=== PATIENT | female | born 1985 | race African-American/Black ===

== ENCOUNTER 2016-12-07 12:17 | Emergency (ER) | payer MEDICAID ==
[~2016-12-07] VITALS: Ht 162.6 cm; Wt 86.0 kg
[~2016-12-07 12:17] MED LIST: CIPR500T4 PO; LORTA5 PO; ZOFR4TAB3 SL
[2016-12-07 12:21] VITALS: BP 133/76; PULSE 98; RESP 16; TEMP 99.4; O2SAT 97
[2016-12-07] MEDS ORDERED: predniSONE 20 MG TAB PO ONE (13:30)
[2016-12-07] MEDS ORDERED: RESP: ALBUTEROL 2.5 MG/3 ML NEB (SCH) INH ONE (13:30)
[2016-12-07] MEDS ORDERED: IBUPROFEN 800 MG TAB PO ONE (13:30)
--- NOTE | 2016-12-07 13:36 | PD ---
HPI Chief Complaint: Cold / Flu Symptoms Time Seen by Provider: 13:31 Travel History International Travel<30 days: No Contact w/Intl Traveler<30days: No Traveled to known affect area: No History of Present Illness HPI 31-year-old female presents to the emergency Department with complaint of nasal congestion, cough, throat irritation times one week. Onset of fever yesterday with MAXIMUM TEMPERATURE 100.7 last night. Reports body aches. Reports decreased appetite. Denies nausea, vomiting. Denies chest pain, shortness of breath, abdominal pain. Reports throat irritation with coughing. Denies ear pain. Has not taken any medications or tried any treatments to alleviate her symptoms. No 1 else with similar symptoms. Did not get the flu vaccine. No known aggravating or relieving factors. Tobacco use daily. Denies history of asthma. No known allergies. No other modifying factors or associated signs and symptoms. PFSH Past Medical History Diminished Hearing: No ?: Not : 3 Para: 3 Tubal Ligation: Yes Past Surgical History Section: Yes (x 3) Oral Surgery: Yes (REMOVED ALL TEETH, PT WEARS DENTURES) Other Surgery: Yes (DENTAL) Social History Alcohol Use: Yes (OCCASIONALLY ) Tobacco Use: Yes (1/3 pack a day ) Substance Use: No Allergies-Medications (Allergen,Severity, Reaction): Coded Allergies: No Known Allergies (Verified , 12/07/16) Reported Meds & Prescriptions Reported Meds & Active Scripts Active Ibuprofen 800 Mg Tab 800 Mg PO Q6HR PRN Tessalon Perles (Benzonatate) 100 Mg Cap 100 Mg PO TID PRN Deltasone (Prednisone) 20 Mg Tab 40 Mg PO DAILY 4 Days start 12/08/2016 Proair Hfa 8.5 GM Inh (Albuterol Sulfate) 90 Mcg/Act Aer 2 Puff INH Q4-6H PRN 108 mcg/actuation Review of Systems Except as stated in HPI: all other systems reviewed are Neg Physical Exam Narrative GENERAL: Well-nourished, well-developed female patient, in no acute distress; low-grade fever 99.4; nontoxic-appearing SKIN: Warm and dry. HEAD: Atraumatic. Normocephalic. EYES: Pupils equal and round. No scleral icterus. No injection or drainage. ENT: Mucosa pink and moist. No erythema or exudates. No uvular edema. No uvular , palatal, or tonsillar deviation. Airway patent. Nares without nasal blood, purulent drainage or septal hematoma. EARS: Bilateral pinnae and external canals appear within normal limits. Bilateral tympanic membranes without erythema, dullness or perforation. NECK: Trachea midline. No lymphadenopathy. CARDIOVASCULAR: Regular rate and rhythm. No murmur appreciated. RESPIRATORY: No accessory muscle use. Lungs with decreased lung sounds to bilateral bases to auscultation. Breath sounds equal bilaterally. No retractions or tachypnea. No Audible wheezing noted. Moist cough noted. GASTROINTESTINAL: Abdomen soft, non-tender, nondistended. Hepatic and splenic margins not palpable. Bowel sounds are active 4 quadrants. MUSCULOSKELETAL: No obvious deformities. No clubbing. No cyanosis. No edema. NEUROLOGICAL: Awake and alert. Oriented 3. No obvious cranial nerve deficits. Motor grossly within normal limits. Normal speech. Moves all extremities. 5/5 strength to all extremities. PSYCHIATRIC: Appropriate mood and affect; insight and judgment normal. Data Data Last Documented VS Vital Signs Date Time Temp Pulse Resp B/P Pulse Ox O2 Delivery O2 Flow Rate FiO2 12/07/16 14:06 93 21 12/07/16 12:21 99.4 98 16 133/76 Orders Chest, Single Ap (12/07/16 13:23) Prednisone (Deltasone) (12/07/16 13:30) Albuterol Neb (Albuterol Neb) (12/07/16 13:30) Influenzae A/B Antigen (12/07/16 13:23) Ibuprofen (Motrin) (12/07/16 13:30) MDM Medical Decision Making Medical Screen Exam Complete: Yes Emergency Medical Condition: Yes Medical Record Reviewed: Yes Differential Diagnosis Influenza, pneumonia, bronchitis Narrative Course 31-year-old female with onset of fever yesterday after being sick with cough and nasal congestion times one week. MAXIMUM TEMPERATURE 100.7. Patient has low-grade fever of 99.4 in the ER. She is nontoxic-appearing. Decreased lung sounds bilaterally on auscultation. Patient is in no acute distress without retractions or tachypnea. Moist cough noted. Ibuprofen ordered. Chest x-ray, albuterol nebulizer, and Deltasone ordered. 1430: Chest x-ray with no acute findings. Influenza negative. Suspecting acute bronchitis. 1437: Patient reports improvement in symptoms. Breath sounds are clear and equal bilaterally with improvement. Pro-air inhaler, Deltasone, azithromycin, Tessalon Perles, ibuprofen prescribed for home. Antibiotics prescribed for length of illness. Patient is medically cleared and stable for discharge. Discussed reasons to return to the emergency department. Instructed patient to follow up with primary care provider. Patient agrees with treatment plan. The patients vital signs are stable and the patient is stable for outpatient follow- up and treatment. Patient discharged home, stable and in no acute distress. Diagnosis Primary Impression: Bronchitis Referrals: Primary Care Physician Patient Instructions: Acute Bronchitis (ED), General Instructions Departure Forms: Tests/Procedures, Work Release Enter return to work date: Dec 09, 2016 Additional Instructions: Use Albuterol inhaler as prescribed Take oral steroids as prescribed and complete full course Use Tessalon Perles as prescribed to decrease coughing spasms [id number] decongestants or antihistamines as directed and as needed for symptom management Your cough can last 4-6 weeks Drink plenty of fluids to prevent dehydration Use hot air humidifier to decrease cough exacerbation Turn off ceiling fans and sleep with head of bed elevated Avoid triggers such as second hand smoke, dust, known allergens Follow-up with your primary care provider Return to the emergency department immediately with worsening of symptoms Med/Other Pt SpecificInfo: Prescription(s) given Scripts Azithromycin 500 Mg [id number] Mg PO DAILY #5 TAB Ref 0 Prov:Anabella ButcherP 12/07/16 Ibuprofen 800 Mg [id number] Mg PO Q6HR PRN (PAIN) #30 TAB Ref 0 Prov:Anabella Butcher 12/07/16 Benzonatate (Tessalon Perles)100 Mg [id number] Mg PO TID PRN (COUGH) #20 CAP Ref 0 Prov:Anabella ButcherP 12/07/16 Prednisone (Deltasone)20 Mg Tab40 Mg PO DAILY 4 Days Ref 0 start 12/08/2016 Prov:Anabella Butcher 12/07/16 Albuterol 8.5 GM Inh (Proair Hfa 8.5 GM Inh)90 Mcg/Act Aer2 Puff INH Q4-6H PRN ( SOB/WHEEZING) #1 INHALER Ref 0 108 mcg/actuation Prov:Anabella Butcher 12/07/16 Disposition: 01 DISCHARGE HOME Condition: Stable Anabella Butcher Dec 07, 2016 13:36
--- NOTE | 2016-12-07 13:53 | RADRPT ---
EXAM DATE/TIME: 12/07/2016 13:30 [facility] COMPARISON: No previous studies available for comparison. INDICATIONS : Cough, fever, and shortness of breath. MEDICAL HISTORY : None. SURGICAL HISTORY : None. ENCOUNTER: Initial ACUITY: 1 week PAIN SCORE: 2/10 LOCATION: chest FINDINGS: A single view of the chest demonstrates the lungs to be symmetrically aerated without evidence of mas s, infiltrate or effusion. The cardiomediastinal contours are unremarkable. Osseous structures are intact. CONCLUSION: No evidence of acute cardiopulmonary disease. Kleber Rooney MD on December 07, 2016 at 13:51 Board Certified Radiologist. This report was verified electronically.
[2016-12-07 14:06] VITALS: O2SAT 93
[2016-12-07] MEDS ORDERED: IBUP800T23 PO (14:34)
[2016-12-07] MEDS ORDERED: PRED-503 PO (14:34)
[2016-12-07] MEDS ORDERED: ALBUAER3 INH (14:34)
[2016-12-07] MEDS ORDERED: BENZ100 PO (14:34)
[2016-12-07] MEDS ORDERED: AZIT500T2 PO (14:38)
== END 2016-12-07 14:52 | disposition home or self-care (01) ==
LOC: NEPB 12:17
DX: J40 Bronchitis, not specified as acute or chronic (principal); R50.9 Fever, unspecified; M79.1 Myalgia; Z72.0 Tobacco use
CPT/HCPCS: 71010; 87804; 94664; 99283; J7512; J7613

== ENCOUNTER 2017-09-24 09:19 | Emergency (ER) | payer MEDICAID ==
[~2017-09-24] VITALS: Ht 162.6 cm; Wt 100.0 kg
[~2017-09-24 09:19] MED LIST changes: +ALBUAER3 INH; +AZIT500T2 PO; +BENZ100 PO; -CIPR500T4 PO; +IBUP1TAB7 PO; -LORTA5 PO; +PRED-503 PO; -ZOFR4TAB3 SL
[2017-09-24 09:20] VITALS: BP 121/83; PULSE 70; RESP 16; TEMP 98.4; O2SAT 99
--- NOTE | 2017-09-24 11:13 | PD ---
HPI Chief Complaint: Pain: Acute or Chronic Time Seen by Provider: 11:03 Travel History International Travel<30 days: No Contact w/Intl Traveler<30days: No Traveled to known affect area: No History of Present Illness HPI 32-year-old female with history of carpal tunnel syndrome presents to the emergency room for evaluation of the same. States for the past 3 days she has had severe right hand pain, numbness and tingling, and stiffness that radiates into her arm. Patient works as a bench precision assembler. She was diagnosed with carpal tunnel syndrome last year but was not sure that this was the same. She experiences similar symptoms in her left hand but not as severe. No chronic medical conditions or daily medications. History Past Medical Histgory LMP: LAST WEEK Social History Alcohol Use: Yes (OCCASIONALLY ) Tobacco Use: Yes (1/3 pack a day ) Allergies-Medications (Allergen,Severity, Reaction): Coded Allergies: No Known Allergies (Verified , 12/07/16) Reported Meds & Prescriptions Reported Meds & Active Scripts Active Azithromycin 500 Mg Tab 500 Mg PO DAILY Ibuprofen 800 Mg Tab 800 Mg PO Q6HR PRN Tessalon Perles (Benzonatate) 100 Mg Cap 100 Mg PO TID PRN Deltasone (Prednisone) 20 Mg Tab 40 Mg PO DAILY 4 Days start 12/08/2016 Proair Hfa 8.5 GM Inh (Albuterol Sulfate) 90 Mcg/Act Aer 2 Puff INH Q4-6H PRN 108 mcg/actuation Review of Systems Except as stated in HPI: all other systems reviewed are Neg Physical Exam Narrative GENERAL: Well-nourished, well-developed female in no acute distress. Afebrile. Ambulatory. SKIN: Focused skin assessment warm/dry. HEAD: Normocephalic. EYES: No scleral icterus. No injection or drainage. NECK: Supple, trachea midline. No JVD or lymphadenopathy. CARDIOVASCULAR: Regular rate and rhythm without murmurs, gallops, or rubs. RESPIRATORY: Breath sounds equal bilaterally. No accessory muscle use. MUSCULOSKELETAL: No cyanosis, or edema. Radial, ulnar, and median nerves intact. 2+ radial pulse. Full range of motion of right upper extremity. Positive Tinel and Phalen signs. Data Data Last Documented VS Vital Signs Date Time Temp Pulse Resp B/P (MAP) Pulse Ox O2 Delivery O2 Flow Rate FiO2 09/24/17 09:20 98.4 70 16 121/83 96 99 MDM Medical Screen Exam Complete: Yes Emergency Medical Condition: No Differential Diagnosis Carpel tunnel syndrome Narrative Course 32-year-old female with history of carpal tunnel syndrome presents to the emergency room for evaluation of the same. For the past 3 days she has had exacerbation of symptoms in her right hand. She has left-hand symptoms as well but not as severe. Physical exam is reassuring. Patient has positive Tinel and Phalen sign. Right upper extremity is neurovascularly intact with 2+ radial pulse. Radial, ulnar, median nerves intact. Full range of motion of right upper extremity. No edema, erythema, or ecchymosis. Patient was informed that she should follow up with her PCP for referral to hand surgeon if symptoms persist. Recommended to use [id number] NSAIDs and splint. She understands and agrees. No urgent or emergent medical conditions at this time. A medical screening exam was performed: At the time of evaluation the presenting medical condition was determined not to be of an emergent nature. The patient was given the option of receiving additional care, but declined. Patient was given options for additional community resources from which to obtain care. The Patient Has Been advised to seek medical attention for their presenting complaint. The patient has been advised to return to the ER at any time if an emergent condition develops. Primary Impression: Encounter for medical screening examination Disposition: 01 DISCHARGE HOME Condition: Stable Yanet Schultz Sep 24, 2017 11:13
== END 2017-09-24 11:14 | disposition left against medical advice (07) ==
LOC: NEPK 09:19
DX: M79.641 Pain in right hand (principal)
CPT/HCPCS: 99281